=== PATIENT | male | born 1970 | race Caucasian/White ===

== ENCOUNTER 2025-02-16 12:30 | Day surgery (SDC) | payer BC, SELFPAY ==
[2025-02-16] VITALS (10 sets, daily range): BP systolic 104–134; BP diastolic 73–90; PULSE 60–85; RESP 12–18; TEMP 36.2–36.4; O2SAT 93–100; BMI 26.1
[2025-02-16] MEDS: RINGERS LACTATED 500 ML 500 ML 100 ML IV (14:53)
[2025-02-16] MEDS: fentaNYL CIT INJ 50 mCg/ML AMP 2ML (ASD USE ONLY) IV (14:54)
[2025-02-16] MEDS: MIDAZOLAM INJ 1 MG/ML VIAL 2 ML (ASD USE ONLY) 2 MG IV (14:55)
== END 2025-02-16 15:55 | disposition home or self-care (01) ==
PROVIDERS: PCP Internal Medicine; Referring Provider Surgery; Visit Provider Surgery
PROC: 0DBE8ZX Excision of Large Intestine, Via Natural or Artificial Opening Endoscopic, Diagnostic (ICD-10-PCS; CPT 45380; principal; 2025-02-16 14:30)
DX: Z12.11 Encounter for screening for malignant neoplasm of colon (principal)
CPT/HCPCS: 45378; J2250; J3010; J7120